=== PATIENT | male | born 1940 | race Caucasian/White ===

== ENCOUNTER 2019-09-23 08:28 | Inpatient (IN) ==
--- NOTE | 2019-06-03 19:52 | PAT Medication Instructions ---
Medication Instructions Date of Service June 03, 2019 Home Medications albuterol sulfate [ProAir HFA] 2 puff INHALATION QID PRN 06/03/19 [History Confirmed 06/03/19] ascorbic acid (vitamin C) [Vitamin C] 1 g PO QAM 06/03/19 [History Confirmed 06/03/19] aspirin [Aspirin Low Dose] 81 mg PO BID 06/03/19 [History Confirmed 06/03/19] atorvastatin [Lipitor] 40 mg PO PM 06/03/19 [History Confirmed 06/03/19] cholecalciferol (vitamin D3) [Vitamin D3] 2,000 unit PO QAM 06/03/19 [History C onfirmed 06/03/19] coQ10 (ubiquinol) 200 mg PO HS 06/03/19 [History Confirmed 06/03/19] docusate sodium 100 mg PO BID 06/03/19 [History Confirmed 06/03/19] finasteride [Proscar] 5 mg PO QAM 06/03/19 [History Confirmed 06/03/19] metformin 500 mg PO BID 06/03/19 [History Confirmed 06/03/19] metoprolol tartrate 25 mg PO BID 06/03/19 [History Confirmed 06/03/19] montelukast [Singulair] 10 mg PO PM 06/03/19 [History Confirmed 06/03/19] multivitamin 1 tab PO QAM 06/03/19 [History Confirmed 06/03/19] omega 7-vlu-gsm-fish oil [Fish Oil] 1 cap PO QPM 06/03/19 [History Confirmed 06/03/19] ramipril [Altace] 10 mg PO QAM 06/03/19 [History Confirmed 06/03/19] tamsulosin [Flomax] 0.4 mg PO HS 06/03/19 [History Confirmed 06/03/19] ASK your prescriber and surgeon aspirin [Aspirin Low Dose] 81 mg PO BID 06/03/19 [History Confirmed 06/03/19] STOP taking 2 weeks before surgery (or as soon as possible if surgery is within 2 weeks) coQ10 (ubiquinol) 200 mg PO HS 06/03/19 [History Confirmed 06/03/19] omega 6-ski-cwd-fish oil [Fish Oil] 1 cap PO QPM 06/03/19 [History Confirmed 06/03/19] DO NOT take the morning of surgery ascorbic acid (vitamin C) [Vitamin C] 1 g PO QAM 06/03/19 [History Confirmed 06/03/19] cholecalciferol (vitamin D3) [Vitamin D3] 2,000 unit PO QAM 06/03/19 [History Confirmed 06/03/19] docusate sodium 100 mg PO BID 06/03/19 [History Confirmed 06/03/19] metformin 500 mg PO BID 06/03/19 [History Confirmed 06/03/19] multivitamin 1 tab PO QAM 06/03/19 [History Confirmed 06/03/19] ramipril [Altace] 10 mg PO QAM 06/03/19 [History Confirmed 06/03/19] Take morning of surgery With a small sip of water, OTHERWISE NOTHING TO EAT OR DRINK AFTER MIDNIGHT: albuterol sulfate [ProAir HFA] 2 puff INHALATION QID PRN 06/03/19 [History Confirmed 06/03/19] (use if needed; please bring with you to hospital day of surgery if possible) finasteride [Proscar] 5 mg PO QAM 06/03/19 [History Confirmed 06/03/19] metoprolol tartrate 25 mg PO BID 06/03/19 [History Confirmed 06/03/19] Other Notes If you have any questions please call us at [phone] or [phone] or [phone] or [phone]
--- NOTE | 2019-08-19 11:50 | PAT Medication Instructions ---
Medication Instructions Date of Service August 19, 2019 Home Medications albuterol sulfate [ProAir HFA] 2 puff INHALATION QID PRN ascorbic acid (vitamin C) [Vitamin C] 1 g PO QAM aspirin [Aspirin Low Dose] 81 mg PO BID atorvastatin [Lipitor] 40 mg PO PM cholecalciferol (vitamin D3) [Vitamin D3] 2,000 unit PO QAM coQ10 (ubiquinol) 200 mg PO HS docusate sodium 100 mg PO BID finasteride [Proscar] 5 mg PO QAM metformin 500 mg PO BID metoprolol tartrate 25 mg PO BID montelukast [Singulair] 10 mg PO PM multivitamin 1 tab PO QAM omega 4-sml-qud-fish oil [Fish Oil] 1 cap PO QPM ramipril [Altace] 10 mg PO QAM tamsulosin [Flomax] 0.4 mg PO HS empagliflozin 25 mg tablet 12.5 mg PO QAM ASK your prescriber and surgeon aspirin [Aspirin Low Dose] 81 mg PO BID STOP taking 2 weeks before surgery (or as soon as possible if surgery is within 2 weeks) coQ10 (ubiquinol) 200 mg PO HS omega 6-xss-vil-fish oil [Fish Oil] 1 cap PO QPM DO NOT take the morning of surgery ascorbic acid (vitamin C) [Vitamin C] 1 g PO QAM cholecalciferol (vitamin D3) [Vitamin D3] 2,000 unit PO QAM docusate sodium 100 mg PO BID metformin 500 mg PO BID multivitamin 1 tab PO QAM ramipril [Altace] 10 mg PO QAM empagliflozin 25 mg tablet 12.5 mg PO QAM Take morning of surgery With a small sip of water, OTHERWISE NOTHING TO EAT OR DRINK AFTER MIDNIGHT: albuterol sulfate [ProAir HFA] 2 puff INHALATION QID PRN (use if needed; please bring with you to hospital day of surgery if possible) finasteride [Proscar] 5 mg PO QAM metoprolol tartrate 25 mg PO BID Take evening before surgery albuterol sulfate [ProAir HFA] 2 puff INHALATION QID PRN (if needed) atorvastatin [Lipitor] 40 mg PO PM docusate sodium 100 mg PO BID metformin 500 mg PO BID metoprolol tartrate 25 mg PO BID montelukast [Singulair] 10 mg PO PM tamsulosin [Flomax] 0.4 mg PO HS Other Notes If you have any questions please call us at [phone] or [phone] or [phone] or [phone]
--- NOTE | 2019-08-23 10:22 | Anesthesiology Consultation ---
Date of Service August 23, 2019 Assessment & Plan (1) Encounter for pre-operative examination: - Hx carotid artery stenosis s/p left CEA (~3 years ago): Attempting to obtain most recent carotid imaging (Dr. Painter). - Bifascicular block on preop EKG (not noted on available previous EKG's): awaiting response from PCP (Dr. Painter). - Check BSG AM DOS - ASA instructions: per surgeon/prescriber. Chart Review Chart Review: Patient seen in Pre Admission Testing Teaching & Discussion Pre-Anesthesia Teaching/Discussion Notes: Instructed NPO after midnight before surgery,except medications with 15 cc of water. Medication instructions provided according to the PAT guidelines. History Surgery Operation Date: 07/16/19 10:40 Proposed Procedures p Left Total Knee Arthroplasty - Cheo Blood MD Operation Date: 09/23/19 09:20 Proposed Procedures p Left Total Knee Arthroplasty - Cheo Blood MD Height/Weight Height: 5 ft 9 in Weight: 122.8 kg Allergies Allergy/AdvReac Type Severity Reaction Status Date / Time No Known Allergies Allergy Unknown NONE Verified 08/13/19 11:15 Medications Home Medications Medication Instructions Recorded Confirmed Last Taken albuterol sulfate [ProAir HFA] 2 puff INHALATION QID PRN 06/03/19 08/13/19 Unknown ascorbic acid (vitamin C) [Vitamin 1 g PO QAM 06/03/19 08/13/19 Unknown C] aspirin [Aspirin Low Dose] 81 mg PO BID 06/03/19 08/13/19 Unknown atorvastatin [Lipitor] 40 mg PO PM 06/03/19 08/13/19 Unknown cholecalciferol (vitamin D3) 2,000 unit PO QAM 06/03/19 08/13/19 Unknown [Vitamin D3] coQ10 (ubiquinol) 200 mg PO HS 06/03/19 08/13/19 Unknown docusate sodium 100 mg PO BID 06/03/19 08/13/19 Unknown finasteride [Proscar] 5 mg PO QAM 06/03/19 08/13/19 Unknown metformin 500 mg PO BID 06/03/19 08/13/19 Unknown metoprolol tartrate 25 mg PO BID 06/03/19 08/13/19 Unknown montelukast [Singulair] 10 mg PO PM 06/03/19 08/13/19 Unknown multivitamin 1 tab PO QAM 06/03/19 08/13/19 Unknown omega 1-red-apg-fish oil [Fish Oil] 1 cap PO QPM 06/03/19 08/13/19 Unknown ramipril [Altace] 10 mg PO QAM 06/03/19 08/13/19 Unknown tamsulosin [Flomax] 0.4 mg PO HS 06/03/19 08/13/19 Unknown empagliflozin 25 mg tablet 12.5 mg PO QAM tab 07/12/19 08/13/19 Unknown Past Medical History Medical History BPH (benign prostatic hyperplasia) Carotid artery stenosis s/p left CEA (3 years ago) Goiter under surveillance Hearing deficit BL H/A Hx of transient ischemic attack (TIA) 3 years ago Hyperlipidemia Hypertension Morbid obesity Osteoarthritis Pre-diabetes on oral medications Exercise / Class Metabolic Activity III < 4 Walking/Shop/Light housework Past Family History Family History Father Family history of diabetes mellitus Grandfather (Maternal) Family history of diabetes mellitus Grandfather (Paternal) Family history of diabetes mellitus Mother Family history of diabetes mellitus Brother Family history of diabetes mellitus Past Surgical History Surgical History History of cataract surgery R/L History of knee replacement procedure of right knee History of left-sided carotid endarterectomy Hx of colonoscopy Past Anesthesia History No Hx of Anesthesia Complications and No Family Hx of Anesthesia Complications History of PONV No Hx of PONV and No Hx of Motion Sickness Social History Smoking Status: Former smoker Do You Dip or Chew Tobacco: No Smoking End Date: Quit 45 YR AGO Hx Alcohol Use: No Hx Substance Use: No Review of Systems Patient denies chest pain, shortness of breath, cough, wheezing, palpitations. Physical Exam Vital Signs VITALS BP 105/60 P 49 (asymptomatic on beta kristine) TEMP 97.9 SP02 97%RA RESP 18 PHYSICAL Full neck and c-spine range of motion. Full TMJ range of motion. TMD 3.5 finger breaths Mallampati Score 2 Dentition: missing molars Lungs: clear throughout to auscultation Cardiac: regular rate and rhythm, distant heart sounds Spine: normal Carotid arteries: negative bruit Extremities: no edema Testing Laboratory Results 08/23/19 10:50 08/23/19 10:50 PT 10.6 Seconds (9.0-12.0) 08/23/19 10:50 INR 1.0 (0.9-1.1) 08/23/19 10:50 APTT 25.6 Seconds (21.0-31.0) 08/23/19 10:50 Hemoglobin A1c 5.9 % (4.5-5.6) H 08/23/19 10:50 Blood Type A Negative 08/23/19 10:50 Antibody Screen NEGATIVE 08/23/19 10:50 Electrocardiogram Date: 08/23/19 SB at 53bpm. RBBB. LAFB. *Bifascicular block* Chest X-Ray Date: 08/23/19 The heart is normal in size. There is no failure. There is no focal pulmonary consolidation. There are no pleural effusions. There is deviation of the trachea at the thoracic inlet to the right of midline. This is consistent with the patient's known thyroid goiter (under surveillance by PCP).
--- NOTE | 2019-08-23 11:17 | XRay Report ---
XR chest Pre-admission PA/Lat CLINICAL HISTORY: Preoperative chest COMPARISON STUDY: Thyroid ultrasound dated 06/17/2019, chest x-ray dated 06/12/2009 FINDINGS: The heart is normal in size. There is no failure. There is no focal pulmonary consolidation . There are no pleural effusions. There is deviation of the trachea at the thoracic inlet to the righ t of midline. This is consistent with the patient's known thyroid goiter.[ IMPRESSION: 1. Thoracic inlet mass, consistent with the patient's known thyroid goiter 2. No active disease in the chest. ACT 112: Negative or not required by law. Electronically signed by: Nash Rodriguez M.D. 08/23/2019 11:16 AM
[2019-08-23 13:15] LABS: Basophils # (auto) 0.05 K/uL (0-0.2); Basophils % (auto) 0.7 %; Eosinophils # (auto) 0.16 K/uL (0-0.5); Eosinophils % (auto) 2.3 %; Hemoglobin 16.1 g/dL (14.0-18.0); Immature Granulocytes # (auto) 0.01 K/uL (0.00-0.02); Immature Granulocytes % (auto) 0.1 %; Lymphocytes # (auto) 1.96 K/uL (1.2-3.4); Lymphocytes % (auto) 28.4 %; Mean Corpuscular Hemoglobin 30.6 pg (25-34); Mean Corpuscular Hgb Conc 32.9 g/dL (32-36); Mean Platelet Volume 10.3 fL (7.4-10.4); Monocytes # (auto) 0.87 K/uL (0.11-0.59); Monocytes % (auto) 12.6 %; Neutrophils # (auto) 3.85 K/uL (1.4-6.5); Neutrophils % (auto) 55.9 %; Platelet Count 198 K/uL (130-400); RDW Coefficient of Variation 12.9 % (11.5-14.5); RDW Standard Deviation 44.1 fL (36.4-46.3); Red Blood Count 5.27 M/uL (4.7-6.1)
[2019-08-23 13:25] LABS: Alanine Aminotransferase 41 U/L (12-78); Albumin Level 3.5 gm/dl (3.4-5.0); Aspartate Aminotransferase 26 U/L (15-37); BUN Creatinine Ratio 20.2 (10-20); Bilirubin Direct < 0.1 mg/dl (0-0.2); Blood Urea Nitrogen 22 mg/dl (7-18); C Reactive Protein < 0.29 mg/dl (0-0.29); Calcium 10.1 mg/dl (8.5-10.1); Carbon Dioxide 28 mmol/L (21-32); Chloride 107 mmol/L (98-107); Creatinine Clr Calc Pharmacy 72.2 ml/min; Est GFR (African American) 73.8; Est GFR (Non-African American) 63.7; Glucose 80 mg/dl (70-99); Potassium 4.5 mmol/L (3.5-5.1); Sodium 140 mmol/L (136-145)
[2019-08-23 13:28] LABS: Alkaline Phosphatase 73 U/L (45-117); Bilirubin,Total 0.7 mg/dl (0.2-1); Total Protein 6.7 gm/dl (6.4-8.2)
[2019-08-23 13:30] LABS: Estimated Average Glucose 123 mg/dl; Hemoglobin A1C 5.9 % (4.5-5.6)
[2019-08-23 13:33] LABS: Partial Thromboplastin Ratio 0.9; Partial Thromboplastin Time 25.6 Seconds (21.0-31.0); Prothrombin Time 10.6 Seconds (9.0-12.0)
--- NOTE | 2019-08-23 20:08 | Electrocardiogram Report ---
Test Reason : Blood Pressure : / mmHG Vent. Rate : 053 BPM Atrial Rate : 053 BPM P-R Int : 180 ms QRS Dur : 132 ms QT Int : 466 ms P-R-T Axes : 071 -56 048 degrees QTc Int : 437 ms Sinus bradycardia Right bundle branch block Left anterior fascicular block Bifascicular block Abnormal ECG When compared with ECG of 12-JUN-2009 14:42, (RBBB and left anterior fascicular block) is now Present Confirmed by Eleuterio Ibarra ([id number]) on 08/23/2019 8:08:33 PM Referred By: Cheo Blood Confirmed By:Delfino Ibarra
--- NOTE | 2019-09-18 21:57 | History and Physical Report ---
DATE OF ADMISSION: 09/23/2019 CHIEF COMPLAINT: Left knee pain, discomfort and instability. 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 He underwent a right knee replacement back in 06/2009 and has done well from this. We had actually scheduled him for a left knee replacement a while back, but I decided to continue conservative treatment as I did not think his arthritis is quite bad enough. Over the past year or so, he has developed increased pain and discomfort, unresponsive to conservative treatment. He has been through injection treatment, which helped him for about 2 weeks only. He has been through a therapy program, which did not help at all and if anything, it made it up a bit more painful and did not help with his instability either. He has a limited walking tolerance. The more he walks, the more it hurts. He uses a cane to get around. No groin pain. It is global knee pain. He would like to have his knee fixed. PAST MEDICAL HISTORY: 1. Hypertension. 2. Elevated cholesterol. 3. History of TIA 4-5 years ago, treated with carotid endarterectomy without sequelae. PAST SURGICAL HISTORY: Includes right knee replacement \\2008. CEA - 5 years ag. Chainsaw injury to right arm. MEDICATIONS: 1. Metoprolol - 25 mg twice a day. 2. Metformin 1000 mg at bedtime. 3. Docusate sodium 10 mg BID. 4. Coenzyme Q10 . 5. Flomax. 6. Ramipril 10 mg a day. 7. Jardiance 12.5 mg in AM. 8. Vitamin C. 9. Vitamin D. 10. Proscar 5 mg in AM. SOCIAL HISTORY: 79 year old male. He is . 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 FAMILY HISTORY: Noncontributory. REVIEW OF SYSTEMS: Significant for diabetes. A1c is 5.9. Denies any chest pain or shortness of breath, DVT or PE. There are no known bleeding problems. PHYSICAL EXAMINATION: GENERAL: Reveals a healthy, pleasant, middle-aged male. He looks to be in pretty good health. HEENT: Benign. LUNGS: Clear to auscultation. HEART: Regular rate and rhythm EXTREMITIES: Examination of left knee reveals patient walks with use of a cane. Slight valgus alignment to his knee. This is made worse with weightbearing. Small knee effusion. He is tender diffusely around his knee. Range of motion is 5 degrees short of full extension, 120 degrees of flexion. There is no instability. No pain with hip motion. X-RAYS: X-rays of the left knee reviewed. Shows moderately advanced left knee DJD. He has got lateral compartment as well as patellofemoral compartment disease that has progressed over the past several years. He has got osteophytes off the lateral femoral condyle and lateral tibial plateau. ASSESSMENT: A 79-year-old male 10 years out from right knee replacement with Left KNee DJD unresponsive to conservative treatment. He has been through extensive conservative care including injections, oral medicines, and PT. He would like to have his knee fixed. PLAN: We will take him to the operating room and do a left total knee replacement. The risks and benefits of this procedure were explained to the patient including but not limited to DVT, PE, , infection, neurological injury, vascular injury, bleeding problem, pain, limited range of motion, stiffness, failure to relieve symptoms, incomplete relief of symptoms, need for further surgery in the future, fracture, leg length inequality, nerve palsy, etc. Informed consent was obtained. We did talk to him about taking his metoprolol on the morning of surgery and hold the metformin. He is planning to be discharged to home likely with some home health. KARTHIK
[~2019-09-23 08:28] MED LIST: ACETAMINOPHEN 500 MG TAB PO SCH; BUPIVACAINE 0.5 % 5 MG/1 ML PF 10ML VIAL ONE; BUPIVACAINE LIPOSOME/PF 266 MG, BUPIVACAINE/EPINEPHRINE 50 ML, SODIUM CHLORIDE 0.9% 30 ... INFIL SCH; CEFAZOLIN 3000MG 72.5 ML IV SCH; FAMOTIDINE 20 MG TAB PO SCH; GABAPENTIN 300 MG CAP PO SCH; LR 500ML BOLUS, THEN 15ML/HR IV SCH; LR 60ML/HR IV SCH; METOCLOPRAMIDE HCL 10 MG TABLET PO SCH; ROPIVACAINE 0.5% 5 MG/ML 30 ML VIAL ONE; TRANEXAMIC ACID 1,000 MG **IV Intra-op IV SCH
--- NOTE | 2019-09-23 08:40 | History & Physical Bridge Note ---
Date of Service September 23, 2019 History & Physical Bridge Note I have examined the patient, reviewed the History & Physical and in the interval since the performance of the History & Physical I have noted the following changes of clinical significance: no changes noted
[2019-09-23] MEDS ORDERED: MIDAZOLAM HCL 1 MG/ML 2ML VIAL ONE (08:42)
[2019-09-23] MEDS ORDERED: fentaNYL citrate 100 MCG/2 ML VIAL ONE (08:43)
[2019-09-23] MEDS ORDERED: LIDOCAINE HCL 2% 2 ML VIAL/AMP(20MG/ML) INFIL ONE (08:43)
[2019-09-23] MEDS ORDERED: ONDANSETRON INJ 2 MG/ML 2 ML VIAL ONE (08:43)
[2019-09-23] MEDS ORDERED: PROPOFOL IV EMULSION 10 MG/ML 20 ML VIAL IV ONE ×2 (08:43→11:30)
[2019-09-23] MEDS ORDERED: BUPIVACAINE LIPOSOME 1.3% 266 MG/20 ML VIAL ONE (09:31)
[2019-09-23] MEDS ORDERED: SODIUM CHLORIDE 0.9% PF 50 ML VIAL ONE (09:31)
[2019-09-23] MEDS ORDERED: BACITRACIN INJ 50,000 UNIT VIAL ONE (09:31)
[2019-09-23] MEDS ORDERED: BUPIVACAINE/EPINEPHRINE 0.25% 1:200,000 30 ML VIAL ONE (09:31)
[2019-09-23] MEDS ORDERED: KETOROLAC 30 MG/ML VIAL IV PRN (10:12)
[2019-09-23] MEDS ORDERED: ATROPINE SULFATE 0.1 MG/ML 10ML SYR IV PRN (10:12)
[2019-09-23] MEDS ORDERED: ONDANSETRON INJ 2 MG/ML 2 ML VIAL IV PRN ×2 (10:12→13:42)
[2019-09-23] MEDS ORDERED: ePHEDrine sulfate 50 MG/ML AMP IV PRN (10:12)
[2019-09-23] MEDS ORDERED: HYDROmorphone INJ 1 MG/ML SYRINGE IV PRN (10:12)
[2019-09-23] MEDS ORDERED: PHENYLEPHRINE 100MCG/ML 5ML SYR ONE (11:30)
[2019-09-23] MEDS ORDERED: ePHEDrine sulfate 50 MG/ML SYR ONE (11:30)
--- NOTE | 2019-09-23 12:27 | Post Operative Brief Note ---
PG Immediate Post Op with CF Date of Surgery September 23, 2019 Pre & Post Diagnosis Operation Date: 07/16/19 10:40 <No data on this case meets the specified criteria> Operation Date: 09/23/19 10:40 Pre-Op Diagnosis: Left Knee Advanced Degenerative Joint Disease Post-Op Diagnosis: Left Knee Advanced Degenerative Joint Disease I identified the patient and participated in the time-out.: Yes Procedure Operation Date: 07/16/19 10:40 <No data on this case meets the specified criteria> Operation Date: 09/23/19 10:40 Actual Procedures p Left Total Knee Arthroplasty(Left) - Cheo Blood MD Surgeon Cheo Blood MD [place] Brushing Machine Operator Marjan, PAC Estimated Blood Loss 50 Findings Consistent with Post-Op Diagnosis Fluids 1600 cc Specimens Specimen Description: A. Left Knee Bone and Tissue Drains Osorio Catheter (A 16 Tajik osorio catheter was inserted by Myles Vega RN, without difficulty, clear yellow urine obtained, output to be monitored by Anesthesia.) Anesthesia Type Spinal MAC Complications none Disposition Accompanied Patient To Recovery: No Disposition: Recovery Room
--- NOTE | 2019-09-23 12:56 | XRay Report ---
LEFT KNEE 2 VIEWS History: Left total knee arthroplasty. Degenerative arthritis. Postop. FINDINGS: The patient is status post a left total knee arthroplasty. The hardware is intact. No fract ure or dislocation. Skin perry are in place. IMPRESSION: Left total knee arthroplasty. No evidence for hardware complication. ACT 112: Negative or not required by law. Electronically signed by: Shayne Shay M.D. 09/23/2019 12:54 PM
--- NOTE | 2019-09-23 13:10 | Anesthesiology Progress Note ---
Date of Service September 23, 2019 Anesthesia Post Procedure Vital Signs Vital Signs: Temp Pulse Pulse Resp BP Pulse Ox 09/23/19 13:00 36.5 C 49 L 18 109/66 97 09/23/19 12:50 48 L 18 127/68 97 09/23/19 12:40 51 L 15 128/60 97 09/23/19 12:34 36.5 C 55 L 10 L 122/73 98 09/23/19 09:14 36.5 C 57 L 20 156/80 H 99 Transfer of Care Handoff Completed per policy Notes Mental Status: alert / awake / arousable Patient Amnestic to Procedure: Yes Nausea / Vomiting: adequately controlled Pain: adequately controlled Airway Patency, RR, SpO2: stable & adequate BP & HR: stable & adequate Hydration State: stable & adequate Neuraxial Anesthesia: was administered and sensory block is resolving Anesthetic Complications: no major complications apparent
[2019-09-23] MEDS ORDERED: NALOXONE HCL 0.4 MG/1 ML VIAL/CARP IV PRN (13:42)
[2019-09-23] MEDS ORDERED: bisacodyL 10 MG SUPP PR PRN (13:42)
[2019-09-23] MEDS ORDERED: ALUMINUM/MAGNESIUM SUSP 30 ML UDC PO PRN (13:42)
[2019-09-23] MEDS ORDERED: METOCLOPRAMIDE HCL INJ 5 MG/ML 2 ML VIAL IV PRN (13:42)
[2019-09-23] MEDS ORDERED: DEXTROSE 50% 50 ML SYRINGE IV PRN (13:42)
[2019-09-23] MEDS ORDERED: GLUCAGON FOR INJ 1 MG VIAL SQ PRN (13:42)
[2019-09-23] MEDS ORDERED: GLUCOSE 10 TABS/TUBE PO PRN (13:42)
[2019-09-23] MEDS ORDERED: GLUCOSE 40% GEL 15 GM TUBE PO PRN (13:42)
[2019-09-23] MEDS ORDERED: MAGNESIUM HYDROXIDE SUSP 30 ML UDC PO PRN (13:42)
[2019-09-23] MEDS ORDERED: CARBOHYDRATES FOR HYPOGLYCEMIA PO PRN (13:42)
[2019-09-23] MEDS ORDERED: HYDROmorphone INJ 0.5 MG/0.5 ML SYR IV PRN (13:42)
[2019-09-23] MEDS ORDERED: ALBUTEROL HFA 8 GM INHALER INH PRN (13:50)
[2019-09-23] MEDS ORDERED: PHARMACY GLYCEMIC MGMT CONSULT PRN (13:54)
[2019-09-23] MEDS: SODIUM CHLORIDE 0.9% 1000ML 1,000 ML IV SCH (14:43)
[2019-09-23] MEDS: ACETAMINOPHEN 500 MG TAB PO SCH ×2 (14:43→21:23)
[2019-09-23] MEDS: KETOROLAC TROMETHAMINE 15 MG/ML VIAL IV SCH ×2 (14:43→21:17)
--- NOTE | 2019-09-23 16:07 | Progress Note ---
DATE: 09/23/2019 SUBJECTIVE: A 79-year-old gentleman postop from a left knee replacement. He is doing well. Does not have any feeling yet in his legs. Denies any chest pain or shortness of breath. Not feeling dizzy or lightheaded. OBJECTIVE: VITAL SIGNS: Temperature 36.6. Vital signs stable. GENERAL: Shows a pleasant elderly male. He is sitting up in bed and talking to his and daughter. He looks pretty comfortable. LUNGS: Clear to auscultation. HEART: Has a regular rate and rhythm. ABDOMEN: Soft, nontender, nondistended. EXTREMITIES: Grossly neurovascularly intact except as follows: Examination of the left lower extremity reveals the leg to be well aligned. Dressing is clean, dry, and intact. He has got brisk refill. No significant sensory or motor function yet. X-RAYS: X-rays of the left knee from recovery room are reviewed. It shows a cemented posterior stabilized total knee arthroplasty. Components looked to be in good position. No signs of problems. ASSESSMENT: A 79-year-old gentleman postoperative from a left knee replacement, doing pretty well. Spinal still in effect. Medically, he is doing well. PLAN: 1. DVT prophylaxis including thigh-high TEDs, SCDs, and aspirin twice a day. 2. PT/OT. Weight bear as tolerated. Left total knee protocol. 3. Pain control, doing pretty well with current pain regimen. Obviously, we want to adjust things as the spinal wears off. 4. IV antibiotics x24 hours. 5. Disposition: Plan to discharge to home likely with some home health once adequately recovered and medically stable.
[2019-09-23] MEDS ORDERED: LANTUS PER UNIT CHARGE SQ SCH (16:30)
--- NOTE | 2019-09-23 17:21 | Operative Report ---
Post Operative Report Pre & Post Diagnosis Operation Date: 07/16/19 10:40 <No data on this case meets the specified criteria> Operation Date: 09/23/19 10:40 Pre-Op Diagnosis: Left Knee Advanced Degenerative Joint Disease Post-Op Diagnosis: Left Knee Advanced Degenerative Joint Disease I identified the patient and participated in the time-out.: Yes Procedure Operation Date: 07/16/19 10:40 <No data on this case meets the specified criteria> Operation Date: 09/23/19 10:40 Actual Procedures p Left Total Knee Arthroplasty(Left) - Cheo Blood MD Surgeon Cheo Blood MD Mushroom Cultivator Marjan, PAC Estimated Blood Loss 50 Findings Consistent with Post-Op Diagnosis Operative findings revealed advanced left knee tricompartment DJD. He had grade 4 [id number] disease in all 3 compartments. Interestingly, most severely in the medial side was more extensive disease. He had some focal eburnation changes laterally. He had a significant joint effusion with a valgus deformity to his knee. Fluids 1600 cc. Specimens Left knee sent for pathology. Drains None. Anesthesia Type Spinal MAC Complications none Disposition Accompanied Patient To Recovery: No Disposition: Recovery Room Indications Patient is a 79-year-old long-term patient of mine who I did a right knee replacement about 10 years ago. Did pretty well from that. Over the past several year he is developing increasing progressive pain in his left knee. We treated extensively conservative treatment including therapy, medicines, injections. This did not help him. He continues to require a cane to get around. X-rays revealed moderate DJD. Failed all conservative care and was strongly desiring knee replacement surgery. He is done quite well with his right knee with a fairly similar disease findings at the time of his surgery. Description of Procedure Operative implants consist of: 1. Biomet Vanguard size 72.5 left posterior by femoral component. 2. Biomet size 79 tibial tray. 3. 10 mm Po stabilized polyethylene insert. 4. Patella-31 x 8 all poly-patella. Patient was taken to the operating identified and placed on the operating table supine position protectors were properly padded. IV antibiotics arrived by anesthesia team. A spinal anesthetic and abductor canal block had been provided in the holding area. Thomas catheter was placed in sterile fashion. Left thigh tip was then placed in the left lower extremities and prepped and draped in usual sterile fashion. Left leg was elevated exsanguinated with use of an Esmarch and a tourniquet was placed at 300 mmHg. An anterior posterior left knee was then performed the longitudinal incision centered over the patella. Sharp dissection was cut through subcutaneous tissue down to the extensor mechanism. A medial parapatellar arthrotomy incision was made. Some subperiosteal dissection was carried out medially. The fat pad was dissected from each patella tendon. The lateral patellofemoral ligament was released. Patella was everted and the knee was flexed. The osteophytes were taken off the distal femur. The ACL and PCL were then released from distal femur the tibia subluxated anteriorly. The external tibial alignment jig was then placed in the interface the tibia and adjusted 12 mm medially. Proximal tibial cut was made to move about 3 to 4 mm of bone from the medial side. The tibia was then sized to a size 79. Attention drawn the femur. The distal femur was entered the sharp drill bit intramedullary canal was suction. A left 5 degree valgus cutting guide was placed but distal femoral cutting block was pinned in place. Distal femoral cut was made to take an additional 3 mm of bone off distal femur. Femur was then sized to a size 72.5. The AP cutting block was pinned parallel to the epicondylar axis which was 6 degrees of external rotation. The anterior cut, anterior chamfer, posterior cut, posterior chamfer cuts were made. Box cutting guide was placed and just slightly lateral and the box cut was made. I then brought the knee out in extension. I did release some the IT band in order to equalize the extension gap take great care to protect the peroneal nerve at all times. I then flexed the knee and release the popliteus in order to equalize the flexion gap. All osteophytes were removed. A trial femoral component was placed for the tibial tray was pinned in maximum external rotation and the drill and stem stem punch were used to create a defect in proximal tip for the tibial tray. The knee was then trialed the 10 mm insert fit most appropriately. Attention drawn the patella. Patella was cleaned of all soft tissues. Patella thickness measured 23 mm in thickness was cut down to 15. Was sized to a size 31 patella. Locals were drilled for 31 patella. Lateral osteophyte is moved. Patella button was placed. Knee was taken through range of motion patella tracked nicely with no thumbs test. Attention drawn to place the permanent components. All trial components removed. Bone plug was placed in the disc femur limit blood loss. L batch Palacos G cement was mixed. A Biomet Vanguard size 72.5 left posterior by femoral component, Biomet size 79 tibial tray, 10 mm posterior box polyethylene insert, and a 31 x 8 all poly-patella were then cemented in place. His knee was brought in full extension total cement hardened. Final cement check was then performed. The pericapsular tissues were then injected with total of 100 cc of combination twice of Exparel, 30 cc normal saline, 50 cc of quarter percent Marcaine with epinephrine. Patient did receive 1 g tranexa farhad acid per the tourniquet was then let down for final tourniquet time 65 minutes but hemostasis assured use electrocautery. The extensor mechanism closed with combination 1 PDS suture and 1 Vicryl suture in [id number] fashion. The extensor mechanism checked found to be intact the subcutaneous tissue then closed with 2 Dexon suture in a buried knot fashion skin was closed skin perry. Leg was then cleaned dried and sterile dressing composed of Xeroform, 4 x 4's, sterile cast padding, Marc bandage were applied. Patient then transferred to the recovery room in stable condition. Patient tolerated procedure well no comp case but only sponge counts are correct at the end the operation I attest to the content of the Intraoperative Record and any orders documented therein. Any exceptions are noted below.
--- NOTE | 2019-09-23 17:30 | Progress Note ---
DATE: 09/23/2019 SUBJECTIVE: 79-year-old gentleman postop from a left knee replacement. He is doing pretty well. He is just starting to get some feeling back in his legs. He has no pain. No chest pain or shortness of breath. Not feeling dizzy or lightheaded. OBJECTIVE: VITAL SIGNS: Temperature is 36.4. Vital signs stable. GENERAL: Shows a pleasant, middle-aged male. He is lying in bed and talking to his family. He looks pretty comfortable. EXTREMITIES: Examination of the left leg reveals the dressing to be clean, dry and intact. He still does not have any function or movement in his foot yet. He has brisk refill. X-RAYS: X-rays of the left knee from recovery room reviewed. It shows cemented posterior stabilized total knee arthroplasty. Components looked to be in good position. ASSESSMENT: 79-year-old gentleman postop from a left knee replacement, doing pretty well. Spinal still in effect. PLAN: 1. DVT prophylaxis including thigh-high TEDs, SCDs, and aspirin twice a day. 2. PT/OT. Weight bear as tolerated. Left total knee protocol. 3. Pain control, doing okay with current pain regimen. We will obviously have to adjust his meds as the spinal wears off. 4. IV antibiotics x24 hours. 5. Disposition: Plan to discharge to home with some home health once adequately recovered and medically stable.
[2019-09-23] MEDS ORDERED: TRANEXAMIC ACID / 0.7% NACL 1,000 MG/100 ML BAG IV SCH (18:30)
[2019-09-23] MEDS: ASCORBIC ACID 500 MG TAB PO SCH (18:39)
[2019-09-23] MEDS: FERROUS GLUCONATE 324 MG TAB PO SCH (18:39)
[2019-09-23] MEDS: INSULIN ASPART 100 UNITS/ML 3 ML PEN SC SCH ×2 (18:47→21:25)
[2019-09-23] MEDS: CEFAZOLIN 2000MG 2,000 MG/15 ML SYR IV SCH (18:51)
[2019-09-23] MEDS ORDERED: NON-FORMULARY MEDICATION (Coq10 (Ubiquinol) 200 MG) PO SCH (21:00)
[2019-09-23] MEDS ORDERED: NON-FORMULARY MEDICATION (Docusate Sodium 100 MG) PO SCH (21:00)
[2019-09-23] MEDS: ASPIRIN 81 MG ECTAB PO SCH (21:21)
[2019-09-23] MEDS: DOCUSATE SODIUM 100 MG CAP PO SCH (21:21)
[2019-09-23] MEDS: TAMSULOSIN HCL 0.4 MG CAP PO SCH (21:22)
[2019-09-23] MEDS: ATORVASTATIN 40 MG TAB PO SCH (21:22)
[2019-09-23] MEDS: METOPROLOL TARTRATE 25 MG TAB PO SCH (21:22)
[2019-09-23] MEDS: OMEGA-3 (PURIFIED FISH OIL) 1 GM CAP PO SCH (21:23)
[2019-09-23] MEDS: MONTELUKAST SODIUM 10 MG TABLET PO SCH (21:23)
[2019-09-23] MEDS: SENNA 8.6 MG TAB PO SCH (21:23)
[2019-09-24] MEDS: OXYCODONE HCL IR 5 MG TAB (IMMEDIATE RELEASE) PO PRN ×3 (00:01→20:18)
[2019-09-24] MEDS: SODIUM CHLORIDE 0.9% 1000ML 1,000 ML IV SCH (00:03)
[2019-09-24] MEDS: CEFAZOLIN 2000MG 2,000 MG/15 ML SYR IV SCH (02:13)
[2019-09-24] MEDS: KETOROLAC TROMETHAMINE 15 MG/ML VIAL IV SCH ×4 (02:13→20:15)
[2019-09-24 05:04] LABS: Hematocrit (blood only) 43.2 % (42-52); Hemoglobin 14.3 g/dL (14.0-18.0); Mean Corpuscular Hemoglobin 30.7 pg (25-34); Mean Corpuscular Hgb Conc 33.1 g/dL (32-36); Mean Corpuscular Volume 92.7 fL (80-100); Mean Platelet Volume 9.3 fL (7.4-10.4); Platelet Count 146 K/uL (130-400); RDW Coefficient of Variation 13.1 % (11.5-14.5); RDW Standard Deviation 44.4 fL (36.4-46.3); Red Blood Count 4.66 M/uL (4.7-6.1); White Blood Count 8.76 K/uL (4.8-10.8)
[2019-09-24 05:29] LABS: BUN Creatinine Ratio 23.5 (10-20); Calcium 8.2 mg/dl (8.5-10.1); Creatinine Clr Calc Pharmacy 71.8 ml/min; Est GFR (African American) 73.8; Est GFR (Non-African American) 63.7; Potassium 4.7 mmol/L (3.5-5.1)
[2019-09-24] MEDS: ACETAMINOPHEN 500 MG TAB PO SCH ×3 (05:49→22:15)
--- NOTE | 2019-09-24 07:55 | Progress Note ---
DATE: 09/24/2019 SUBJECTIVE: A 79-year-old gentleman postop day 1 from left knee replacement. He is doing pretty well. Had a pretty good night. His pain is controlled. Denies any chest pain or shortness of breath. Not feeling dizzy or lightheaded. OBJECTIVE: VITAL SIGNS: Temperature 36.3. Vital signs stable. GENERAL: Shows a pleasant, middle-aged male. He is sitting up in bed, looks pretty comfortable. EXTREMITIES: Examination of the left leg reveals the leg to be well aligned. Dressing is clean, dry and intact. He can dorsiflex and plantarflex his foot appropriately. He is neurologically intact. LABORATORY DATA: Hemoglobin 14.3. Hematocrit 43.2. Electrolytes are stable. ASSESSMENT: A 79-year-old gentleman postop day 1 from left knee replacement, doing pretty well. Pain is controlled. He is neurologically intact. PLAN: 1. DVT prophylaxis including thigh-high TEDs, SCDs and aspirin twice a day. 2. PT/OT. Weight bear as tolerated. Left total knee protocol. 3. Pain control, doing pretty well with current pain regimen. 4. Disposition. He is planning to be discharged to home with some home health once adequately recovered and medically stable.
[2019-09-24] MEDS: INSULIN ASPART 100 UNITS/ML 3 ML PEN SC SCH ×4 (08:53→20:49)
[2019-09-24] MEDS ORDERED: NON-FORMULARY MEDICATION (Ascorbic Acid (Vitamin C) [Vitamin C] 1 GM) PO SCH (09:00)
[2019-09-24] MEDS ORDERED: MULTIVITAMIN TAB PO SCH (09:00)
[2019-09-24] MEDS ORDERED: EMPAGLIFLOZIN 12.5 MG PO SCH (09:00)
[2019-09-24] MEDS: FERROUS GLUCONATE 324 MG TAB PO SCH ×2 (09:01→18:06)
[2019-09-24] MEDS: METFORMIN HCL 500 MG TAB PO SCH ×2 (09:01→18:06)
--- NOTE | 2019-09-24 09:01 | Anesthesiology Progress Note ---
Date of Service September 24, 2019 Anesthesia Post Procedure Vital Signs Vital Signs: Temp Pulse Pulse Pulse Resp BP Pulse Ox 09/24/19 07:40 36.6 C 60 17 123/67 95 09/24/19 07:03 36.3 C L 57 L 16 126/72 94 09/24/19 03:03 36.4 C L 46 L 16 115/71 94 09/23/19 23:14 36.4 C L 51 L 20 148/80 H 94 09/23/19 20:00 36.5 C 57 L 16 158/83 H 97 09/23/19 16:26 36.4 C L 49 L 16 148/73 H 96 09/23/19 15:21 36.6 C 49 L 16 134/74 95 09/23/19 14:58 36.4 C L 48 L 18 138/77 97 09/23/19 14:42 46 L 18 113/69 96 09/23/19 14:02 49 L 18 137/68 97 09/23/19 13:25 36.4 C L 46 L 18 121/66 96 09/23/19 13:10 49 L 18 119/57 L 96 09/23/19 13:00 36.5 C 49 L 18 109/66 97 09/23/19 12:50 48 L 18 127/68 97 09/23/19 12:40 51 L 15 128/60 97 09/23/19 12:34 36.5 C 55 L 10 L 122/73 98 09/23/19 09:14 36.5 C 57 L 20 156/80 H 99 Pain Intensity Left Knee: Pain Intensity: 2 Notes Mental Status: alert / awake / arousable and participated in evaluation Patient Amnestic to Procedure: Yes Nausea / Vomiting: adequately controlled Pain: adequately controlled Airway Patency, RR, SpO2: stable & adequate BP & HR: stable & adequate Hydration State: stable & adequate Neuraxial Anesthesia: sensory block resolved Anesthetic Complications: no major complications apparent and Pt Satisfied with anesthetic care
[2019-09-24] MEDS: DOCUSATE SODIUM 100 MG CAP PO SCH ×2 (09:02→20:15)
[2019-09-24] MEDS: ASCORBIC ACID 500 MG TAB PO SCH ×2 (09:02→18:05)
[2019-09-24] MEDS: ASPIRIN 81 MG ECTAB PO SCH ×2 (09:03→20:15)
[2019-09-24] MEDS: MULTIVITAMIN TAB PO SCH (09:05)
[2019-09-24] MEDS: FINASTERIDE 5 MG TAB PO SCH (09:06)
[2019-09-24] MEDS: ENALAPRIL MALEATE 10 MG TAB PO SCH (09:07)
[2019-09-24] MEDS: CHOLECALCIFEROL 1,000 UNITS 25 MCG TAB PO SCH (09:08)
[2019-09-24] MEDS: METOPROLOL TARTRATE 25 MG TAB PO SCH ×2 (09:09→20:15)
--- NOTE | 2019-09-24 10:42 | Pharmacy Report ---
Pharmacy Glycemic Short Note 2 - Date of Service September 24, 2019 - Glycemic Short BSG Results (Last 24 hours): 09/23/19 09/23/19 09/24/19 17:20 20:27 04:50 Glucose 128 H POC Glucose 104 H 149 H 09/24/19 08:06 Glucose POC Glucose 121 H OUTPATIENT ANTIDIABETIC REGIMEN: * empagliflozin 12.5 mg PO qAM * metformin 500 mg PO BID * A1c 5.9% ASSESSMENT: * Aubrey is a 79 yo T2DM POD 1 s/p L TKA * Pt has required little insulin since time of consult (7 units - all bolus). * Fasting BSG at goal without basal insulin * Evidence of baseline renal function and tolerating oral diet, therefore metfor min will be resumed. May need to loosen Novolog carb ratio with metformin on board. PLAN FOR INPATIENT GLYCEMIC CONTROL: * Resume metformin 500 mg PO BID with meals * Basal insulin * none * Bolus insulin * NovoLog per scale ACHS or Q6hrs while NPO * Goal Range: Low 110 mg/dL - High 140 mg/dL * Correction Factor: 20 mg/dL/unit * Nutritional / Prandial insulin per carb ratio of 1 unit per 8 grams CHO consumed PLAN FOR DISCHARGE: * A1c = 5.9% - indicated excellent glycemic control * Resume home regimen on discharge
[2019-09-24] MEDS: ATORVASTATIN 40 MG TAB PO SCH (20:15)
[2019-09-24] MEDS: OMEGA-3 (PURIFIED FISH OIL) 1 GM CAP PO SCH (20:15)
[2019-09-24] MEDS: TAMSULOSIN HCL 0.4 MG CAP PO SCH (20:15)
[2019-09-24] MEDS: MONTELUKAST SODIUM 10 MG TABLET PO SCH (20:16)
[2019-09-24] MEDS: SENNA 8.6 MG TAB PO SCH (20:16)
[2019-09-25] MEDS: KETOROLAC TROMETHAMINE 15 MG/ML VIAL IV SCH ×3 (01:36→07:48)
[2019-09-25] MEDS: ACETAMINOPHEN 500 MG TAB PO SCH (05:52)
[2019-09-25] MEDS: CHOLECALCIFEROL 1,000 UNITS 25 MCG TAB PO SCH (07:44)
[2019-09-25] MEDS: FINASTERIDE 5 MG TAB PO SCH (07:44)
[2019-09-25] MEDS: ASCORBIC ACID 500 MG TAB PO SCH (07:44)
[2019-09-25] MEDS: DOCUSATE SODIUM 100 MG CAP PO SCH (07:44)
[2019-09-25] MEDS: MULTIVITAMIN TAB PO SCH (07:44)
[2019-09-25] MEDS: ASPIRIN 81 MG ECTAB PO SCH (07:44)
[2019-09-25] MEDS: METFORMIN HCL 500 MG TAB PO SCH (07:44)
[2019-09-25] MEDS: FERROUS GLUCONATE 324 MG TAB PO SCH (07:44)
[2019-09-25] MEDS: ENALAPRIL MALEATE 10 MG TAB PO SCH (07:44)
[2019-09-25] MEDS: METOPROLOL TARTRATE 25 MG TAB PO SCH (07:44)
[2019-09-25] MEDS: INSULIN ASPART 100 UNITS/ML 3 ML PEN SC SCH (07:50)
--- NOTE | 2019-09-25 08:49 | Progress Note ---
DATE: 09/25/2019 SUBJECTIVE: A 79-year-old gentleman postop day 2 from a left knee replacement. He is doing pretty well. Pain with therapy, but otherwise pretty manageable. Little nausea with pain medicine. No chest pain or shortness of breath. Not feeling dizzy or lightheaded. OBJECTIVE: VITAL SIGNS: Temperature 36.5. Vital signs stable. GENERAL: Pleasant elderly male. He is sitting on bed, looks pretty comfortable. He is awake, alert and oriented. EXTREMITIES: Examination of the left knee reveals the leg to be well aligned. Dressing is clean, dry and intact. He can dorsiflex and plantarflex his foot appropriately. He is neurologically intact. ASSESSMENT: A 79-year-old gentleman postop day 2 from left knee replacement, doing well. His pain is controlled. He is neurologically intact. PLAN: 1. DVT prophylaxis including thigh-high TEDs, SCDs, and aspirin twice a day. 2. PT/OT. Weight bear as tolerated. Left total knee protocol. 3. Pain control, doing pretty well with current pain regimen. 4. Disposition: Plan to discharge to home likely with some home health later today.
--- NOTE | 2019-09-28 14:41 | Discharge Summary ---
ADMITTING PHYSICIAN AND SURGEON: Dr. Cheo Blood. ADMITTING DIAGNOSIS: Left knee degenerative joint disease. SURGERY PERFORMED: Left total knee arthroplasty. SECONDARY DIAGNOSES: Hypertension, elevated cholesterol, history of transient ischemic attack. CONSULTS: None obtained. HISTORY AND PHYSICAL EXAMINATION: Well documented in the patient's chart. HOSPITAL COURSE: The patient was admitted on 09/23/2019 underwent a total knee arthroplasty, tolerated the procedure well. There were no complications. He was transferred to the PACU postoperatively and later to the orthopedic floor for further care. He was given Ancef for antibiotic prophylaxis, MISA stockings, SCDs and aspirin for DVT prophylaxis. Hemoglobin, hematocrit and vital signs were monitored during his hospital stay and remained stable, did not require any blood transfusions. There were no complications. By postoperative day 2 he was tolerating a diabetic diet. Pain was controlled with oral pain medicine. He was participating in physical therapy. On postop day 2 he was discharged home, set up with home health services, given printed discharge instructions as well as new prescriptions for extra strength Tylenol, aspirin and oxycodone. Continue his home medications, continue physical therapy, weightbearing as tolerated, MISA stockings. Follow up approximately 2 weeks postop or sooner if there are any problems or concerns.
== END 2019-09-25 10:04 | disposition home health service (06) | DRG 470 ==
LOC: ASU 08:28 → 3E 12:33